=== PATIENT | male | born 1925 | race Caucasian/White ===

== ENCOUNTER → 2017-03-30 | Outpatient (REF) | payer MEDICARE, BC ==
[~2017-03-30] MED LIST: /ATOR40TA; ALLO100T; ALLO100T OR; ALLO15TA PO; ASCO500T PO; ASPI1TAB PO; ASPI325T; CALC1CAP31 PO; CALCCHW12; CAPT62TA PO; CARV3.12 PO; CORE6.25; DEMA20TA; GARL1CAP PO; LEVO25TABR OR; LEVO75TA4 PO; MULTIVIT; NATU400T PO; NITR4TASL SL; PIROPOW2; PIROPOW2 XX; PLAV75TA38 PO; TORS20TA2 OR; TORS20TA2 PO; VITA200038 PO; VITA500C; VITA500T53 PO; VITAMIN B; VITAMIN D50000 UNT; VITMTA PO; ZOCO40TA PO; [UNRECOGNIZED DRUG - CODE] OU
[2017-03-30 19:17] LABS: PERCENT SATURATION 24.6 % (19.7-37.4)
== END ==
LOC: M LABDRAW1 17:21
PROVIDERS: ATTEND Internal Medicine Nephrology
DX: D50.9 Iron deficiency anemia, unspecified (principal)